=== PATIENT | male | born 1935 | race Caucasian/White ===

== ENCOUNTER → 2016-07-21 | Outpatient (REF) | payer MEDICARE ==
[2016-07-21 11:40] LABS: MEAN CORPUSCULAR HEMOGLOBIN 32.7 pg (27.0-33.0); MEAN CORPUSCULAR HGB CONC 33.1 g/dl (32.0-36.5); MEAN CORPUSCULAR VOLUME 98.8 fl (80.0-96.0); RED CELL DISTRIBUTION WIDTH 13.9 % (11.5-14.5); RETIC HEMOGLOBIN CONTENT CHr 35.2 PG (24-36); RETICULOCYTE % ADVIA2120 2.3 % (0.5-1.5); WHITE BLOOD COUNT 2.7 K/mm3 (4.0-10.0)
[2016-07-21 13:18] LABS: PERCENT SATURATION 43.7 % (19.7-37.4)
== END | disposition home or self-care (01) ==
LOC: M SFHCCLAY 08:54
PROVIDERS: ATTEND Nurse Practitioner Family
DX: D64.9 Anemia, unspecified (principal)

== ENCOUNTER → 2016-08-11 | Outpatient (REF) | payer MEDICARE ==
[2016-08-11 17:55] LABS: FOLATE > 24.0 NG/ML (>5.4); VITAMIN B12 LEVEL 549 PG/ML (247-911)
[2016-08-11 18:00] LABS: FERRITIN 299 NG/ML (26-388); PERCENT SATURATION 47.2 % (19.7-37.4); TOTAL IRON BINDING CAPACITY 375 UG/DL (250-450)
[2016-08-11 18:34] LABS: REASON FOR REVIEW COMPREHENSIVE REVIEW
== END | disposition home or self-care (01) ==
LOC: M LAB REF 16:24
PROVIDERS: ATTEND Internal Medicine Medical Oncology
DX: D61.818 Other pancytopenia (principal)

== ENCOUNTER → 2016-08-17 | Outpatient (CLI) | payer MEDICARE ==
--- NOTE | 2016-08-17 10:40 | REP ---
ULTRASOUND ABDOMEN: Real-time sonographic evaluation of the abdomen is performed. Gallbladder demonstrates no evidence of intraluminal sludge or calculi, wall thickening or pericholecystic fluid. There is no evidence of intrahepatic or extrahepatic biliary dilatation, common bile duct measuring 4 mm in diameter. Lobulated hyperechoic area in the left lobe of the liver measures 2.7 x 1.8 x 2.3 cm. The pancreas is not well seen due to overlying bowel gas. No gross abnormality is seen of the visualized portions. The spleen demonstrates measurements 10.0 x 11.1 x 5.2 cm. There is no intrinsic splenic abnormality. Right kidney measures 10.2 x 3.7 x 4.8 cm and left kidney 10.2 x 4.8 x 5.1 cm. There is no hydronephrosis bilaterally. There is a cyst in the lower pole of the left kidney measuring 1.5 x 0.9 x 1.1 cm. There is no evidence of abdominal aortic aneurysm. Maximum AP diameter of the abdominal aorta just below the diaphragms is 2.2 cm, mid aspect 2.2 cm and distally 1.8 cm. There is no ascites. IMPRESSION: Lobulated hyperechoic area in the left lobe of the liver may represent hemangioma. Recommend further evaluation with dynamic CT or MRI with contrast. The spleen upper limits of normal to slightly enlarged. Signed by Piotr Zelaya MD 08/17/2016 12:31 P
== END | disposition home or self-care (01) ==
LOC: M RAD 09:25
PROVIDERS: ATTEND Internal Medicine Medical Oncology
DX: D61.818 Other pancytopenia (principal); F10.10 Alcohol abuse, uncomplicated; R93.2 Abnormal findings on diagnostic imaging of liver and biliary tract; R16.1 Splenomegaly, not elsewhere classified

== ENCOUNTER → 2016-08-31 | Outpatient (CLI) | payer MEDICARE ==
--- NOTE | 2016-08-31 12:42 | REP ---
MRI abdomen without and with IV gadolinium: History: Lobulated hyperechoic area in the left lobe of the liver seen by ultrasound, possible hemangioma. MRI or CT recommended. Comparison sonography August 17, 2016. MRI contrast enhancement dose: 14 ml of intravenous ProHance. MR technique: Axial and coronal T1 and T2-weighted scans were obtained. Sequences include true FISP, spin echo, turbo spin-echo, in and out of phase, and 2-D gradient echo fat sat T1-weighted images acquired sequentially post contrast. MRI findings: T1 and T2-weighted pre- and postcontrast images show no hepatic mass lesion. There is some normal fat in the falciform ligament in this patient's liver configuration and this may relate to the sonographic findings. In any event, there is no evidence of mass, cyst, hemangioma or other focal liver lesion. No filling defect is seen within the gallbladder lumen. No pancreatic lesion is seen. There is a small cyst at the lower pole periphery of the left kidney, 2.0 cm in greatest diameter. No other significant renal finding. No retroperitoneal mass or adenopathy is seen. There is no evidence of ascites. Postcontrast images show no abnormal contrast enhancement within the abdomen. Impression: 2 cm cyst lower pole left kidney. Otherwise negative MRI study of the abdomen. No hepatic mass lesion seen. Signed by Branden Gonzáles MD 08/31/2016 02:01 P
== END ==
LOC: M RAD 09:53
PROVIDERS: ATTEND Internal Medicine Medical Oncology
DX: N28.1 Cyst of kidney, acquired (principal)
CPT/HCPCS: 74183; A9576

== ENCOUNTER → 2016-12-10 | Outpatient (REF) | payer MEDICARE ==
[2016-12-10 11:59] LABS: MEAN CORPUSCULAR HEMOGLOBIN 33.7 pg (27.0-33.0); MEAN CORPUSCULAR HGB CONC 34.5 g/dl (32.0-36.5); MEAN CORPUSCULAR VOLUME 97.5 fl (80.0-96.0); RED CELL DISTRIBUTION WIDTH 14.1 % (11.5-14.5); RETIC HEMOGLOBIN CONTENT CHr 36.3 PG (24-36); RETICULOCYTE % ADVIA2120 2.2 % (0.5-1.5)
[2016-12-10 12:09] LABS: ALBUMIN 3.2 GM/DL (3.2-5.2); ALBUMIN/GLOBULIN RATIO 0.82 (1.00-1.93); ALKALINE PHOSPHATASE 73 U/L (45-117); ALT/SGPT 18 U/L (12-78); ANION GAP 7 MEQ/L (8-16); AST/SGOT 17 U/L (15-37); BILIRUBIN,TOTAL 0.5 MG/DL (0.2-1.0); BLOOD UREA NITROGEN 15 MG/DL (7-18); CARBON DIOXIDE LEVEL 27 MEQ/L (21-32); CHLORIDE LEVEL 98 MEQ/L (98-107); CHOLESTEROL LEVEL 184 MG/DL (<200); CREATININE FOR GFR 0.85 MG/DL (0.70-1.30); FERRITIN 192 NG/ML (26-388); GLOMERULAR FILTRATION RATE > 60.0 (>35); GLUCOSE, FASTING 88 MG/DL (83-110); PERCENT SATURATION 23.6 % (19.7-37.4); POTASSIUM SERUM 4.9 MEQ/L (3.5-5.1); SODIUM LEVEL 132 MEQ/L (136-145); TOTAL IRON BINDING CAPACITY 369 UG/DL (250-450); TOTAL PROTEIN 7.1 GM/DL (6.4-8.2); TRIGLYCERIDES LEVEL 157 MG/DL (<150)
== END ==
LOC: M SFHCCLAY 07:58
PROVIDERS: ATTEND Nurse Practitioner Family
DX: D64.9 Anemia, unspecified (principal); I10 Essential (primary) hypertension; Z13.6 Encounter for screening for cardiovascular disorders; E55.9 Vitamin D deficiency, unspecified

== ENCOUNTER 2017-08-17 05:40 | Day surgery (SDC) | payer MEDICARE ==
[2017-08-17] MEDS ORDERED: ACETAMINOPHEN 325 MG TAB PO (06:00)
[2017-08-17] MEDS: BALANCED SALT IRRIGATION SOLUTION 500ML BAG (FOR OR EYE MACHINE) As Ordered (06:53)
[2017-08-17] MEDS ORDERED: PHENYLEPHRINE HCL 10 % OPHTH. SOL 5ML OS (07:00)
[2017-08-17] MEDS ORDERED: PROPARACAINE 0.5% OPHTH SOL 15ML OS (07:01)
[2017-08-17] MEDS ORDERED: LIDOCAINE 2% W/EPIN INJ 20ML **PRES FREE As Ordered (07:26)
[2017-08-17] MEDS ORDERED: MIDAZOLAM INJ 2 MG/2 ML VIAL (J2250) As Ordered (07:44)
[2017-08-17] MEDS ORDERED: fentaNYL 100 MCG/2 ML INJECTION (J3010) As Ordered (07:44)
[2017-08-17] MEDS: LIDOCAINE 1% SDV 5 ML VIAL As Ordered (07:55)
[2017-08-17] MEDS: TRIAMCINOLONE PRES FR 40 MG/ML 1ML(TRIESENCE)(OR EYE ONLY)(J3300 PER 1MG) As Ordered (07:55)
[2017-08-17] MEDS: POVIDONE-IODINE 5% OPHTH PREP SOL 30ML As Ordered (07:55)
[2017-08-17] MEDS: HEALON DUET (HEALON 10MG/ML 0.55ML & HEALON ENDOCOAT 30MG/ML 0.85ML) As Ordered (07:56)
[2017-08-17] MEDS: MOXIFLOXACIN IN BSS 0.25MG/0.25ML INTRACAMERAL INJ (OR EYE ONLY)(J2280) As Ordered (07:56)
[2017-08-17] MEDS: BSS with VANC/TOB/EPI for EYE CASES IR (07:56)
[2017-08-17] MEDS ORDERED: AcetaZOLAMIDE 500 MG ER CAP As Ordered (08:02)
[2017-08-17] MEDS ORDERED: KETOROLAC 0.5% OPHTH SOLN OS (08:15)
[2017-08-17] MEDS ORDERED: TRIMETHOBENZAMIDE 300 MG CAP PO (08:15)
[2017-08-17] MEDS: AcetaZOLAMIDE 500 MG ER CAP PO (08:20)
[2017-08-17] MEDS: LIDOCAINE 3.5 % 1ML OPHTH TOPICAL GEL OU (08:52)
[2017-08-17] MEDS: CYCLOPENTOLATE 2% OPHTH SOLN 2ML BTL OS (08:52)
[2017-08-17] MEDS: PHENYLEPHRINE 2.5% OPHTH SOL 2ML OS (08:52)
[2017-08-17] MEDS: TROPICAMIDE 1% OPHTH SOLN 2ML OS (08:52)
[2017-08-17] MEDS: OFLOXACIN 0.3 % (OCUFLOX) OPTH SOL 5ML OS (08:52)
== END 2017-08-17 08:34 | disposition home or self-care (01) ==
LOC: M SDC 05:40
DX: H59.022 Cataract (lens) fragments in eye following cataract surgery, left eye (principal); I10 Essential (primary) hypertension; Z79.82 Long term (current) use of aspirin; Z79.899 Other long term (current) drug therapy
CPT/HCPCS: 65235

== ENCOUNTER → 2017-10-17 | Outpatient (REF) | payer MEDICARE ==
[2017-10-18 10:50] LABS: PRETREATED FOLATE FOR RBCFOL 13.1 NG/ML; RBC FOLATE 687.8 NG/ML (280-791)
== END ==
LOC: M LAB REF 17:25
DX: D69.6 Thrombocytopenia, unspecified (principal)
CPT/HCPCS: 82747

== ENCOUNTER → 2017-11-02 | Outpatient (REF) | payer MEDICARE | LOC: M LAB REF 13:04 | DX: D70.9 Neutropenia, unspecified (principal); D69.59 Other secondary thrombocytopenia; D53.9 Nutritional anemia, unspecified | CPT/HCPCS: 88300 ==

== ENCOUNTER → 2017-12-13 | Outpatient (REF) | payer MEDICARE ==
[2017-12-13 11:48] LABS: HEMATOCRIT 37.8 % (42.0-52.0); HEMOGLOBIN 13.1 g/dl (13.5-17.5); MEAN CORPUSCULAR HEMOGLOBIN 32.7 pg (27.0-33.0); MEAN CORPUSCULAR HGB CONC 34.7 g/dl (32.0-36.5); MEAN CORPUSCULAR VOLUME 94.3 fl (80.0-96.0); RED BLOOD COUNT 4.01 10^6/uL (4.30-6.10); RED CELL DISTRIBUTION WIDTH 13.1 % (11.5-14.5)
[2017-12-13 11:55] LABS: PLATELET COUNT, AUTOMATED 90 10^3/uL (150-450)
[2017-12-13 11:56] LABS: IMMATURE PLATELET FRACTION % 15.4 % (0.0-10.9)
[2017-12-13 12:03] LABS: TOTAL 25(OH) VITAMIN D 80.5 NG/ML (30.0-100.0)
[2017-12-13 12:05] LABS: ALBUMIN 3.4 GM/DL (3.2-5.2); ALBUMIN/GLOBULIN RATIO 0.87 (1.00-1.93); ALKALINE PHOSPHATASE 81 U/L (45-117); ALT/SGPT 18 U/L (12-78); ANION GAP 9 MEQ/L (8-16); AST/SGOT 15 U/L (7-37); BILIRUBIN,TOTAL 0.5 MG/DL (0.2-1.0); BLOOD UREA NITROGEN 18 MG/DL (7-18); CALCIUM LEVEL 9.1 MG/DL (8.8-10.2); CARBON DIOXIDE LEVEL 27 MEQ/L (21-32); CHLORIDE LEVEL 101 MEQ/L (98-107); CHOLESTEROL LEVEL 191 MG/DL (<200); CHOLESTEROL RISK RATIO 3.183 (<5); CREATININE FOR GFR 0.96 MG/DL (0.70-1.30); GLOMERULAR FILTRATION RATE > 60.0 (>35); GLUCOSE, FASTING 94 MG/DL (70-100); HDL CHOLESTEROL 60 MG/DL (>40); LDL CHOLESTEROL 102.6 MG/DL (<100); NON-HDL-C 131 MG/DL; POTASSIUM SERUM 4.5 MEQ/L (3.5-5.1); SODIUM LEVEL 137 MEQ/L (136-145); TOTAL PROTEIN 7.3 GM/DL (6.4-8.2); TRIGLYCERIDES LEVEL 142 MG/DL (<150)
== END ==
LOC: M SFHCCLAY 08:03
DX: D64.9 Anemia, unspecified (principal); I10 Essential (primary) hypertension; E78.5 Hyperlipidemia, unspecified; E55.9 Vitamin D deficiency, unspecified
CPT/HCPCS: 80053

== ENCOUNTER → 2019-02-14 | Outpatient (REF) | payer MEDICARE ==
[~2019-02-14] MED LIST: AMLO5TAB6 PO; ASPI81TA85 PO; ATEN25TA PO; CALC500T61 PO; LISI40TA PO; MULT1TAB18 PO; MULT1TAB8 PO; MURO5OIN OU; PRED1SUS2 OS; SODI2OPD OU; VITA50005 PO
[2019-02-14 14:33] LABS: HEMATOCRIT 41.5 % (42.0-52.0); HEMOGLOBIN 14.1 g/dl (13.5-17.5); MEAN CORPUSCULAR HEMOGLOBIN 32.9 pg (27.0-33.0); MEAN CORPUSCULAR VOLUME 96.7 fl (80.0-96.0); RED BLOOD COUNT 4.29 10^6/uL (4.30-6.10); WHITE BLOOD COUNT 5.2 10^3/uL (4.0-10.0)
[2019-02-14 14:39] LABS: PLATELET COUNT, AUTOMATED 72 10^3/uL (150-450)
[2019-02-14 15:14] LABS: ALBUMIN 3.3 GM/DL (3.2-5.2); ALT/SGPT 17 U/L (12-78); BILIRUBIN,TOTAL 0.5 MG/DL (0.2-1.0); BLOOD UREA NITROGEN 15 MG/DL (7-18); CALCIUM LEVEL 8.8 MG/DL (8.8-10.2); CARBON DIOXIDE LEVEL 27 MEQ/L (21-32); CHLORIDE LEVEL 100 MEQ/L (98-107); CHOLESTEROL LEVEL 159 MG/DL (<200); CHOLESTEROL RISK RATIO 2.446 (<5); CREATININE FOR GFR 0.81 MG/DL (0.70-1.30); GLOMERULAR FILTRATION RATE > 60.0 (>35); GLUCOSE, FASTING 94 MG/DL (70-100); HDL CHOLESTEROL 65 MG/DL (>40); LDL CHOLESTEROL 71 MG/DL (<100); NON-HDL-C 94 MG/DL; POTASSIUM SERUM 4.3 MEQ/L (3.5-5.1); SODIUM LEVEL 133 MEQ/L (136-145); TOTAL 25(OH) VITAMIN D 73.4 NG/ML (30.0-100.0); TRIGLYCERIDES LEVEL 114 MG/DL (<150)
== END ==
LOC: M SFHCCLAY 08:29
PROVIDERS: ATTEND Nurse Practitioner Family
DX: I10 Essential (primary) hypertension (principal); E78.5 Hyperlipidemia, unspecified; E55.9 Vitamin D deficiency, unspecified

== ENCOUNTER → 2019-11-27 | Outpatient (REF) | payer MEDICARE ==
[2019-11-27 12:28] LABS: HEMATOCRIT 49.1 % (42.0-52.0); HEMOGLOBIN 16.5 g/dl (13.5-17.5); MEAN CORPUSCULAR HEMOGLOBIN 33.3 pg (27.0-33.0); MEAN CORPUSCULAR HGB CONC 33.6 g/dl (32.0-36.5); PLATELET COUNT, AUTOMATED 66 10^3/uL (150-450); RED BLOOD COUNT 4.96 10^6/uL (4.30-6.10); WHITE BLOOD COUNT 3.2 10^3/uL (4.0-10.0)
[2019-11-27 13:12] LABS: ALT/SGPT 21 U/L (12-78); BLOOD UREA NITROGEN 17 MG/DL (7-18); CARBON DIOXIDE LEVEL 27 MEQ/L (21-32); CHLORIDE LEVEL 106 MEQ/L (98-107); GLOMERULAR FILTRATION RATE > 60.0 (>35); GLUCOSE, FASTING 84 MG/DL (70-100); SODIUM LEVEL 140 MEQ/L (136-145)
[2019-11-27 13:13] LABS: ALBUMIN 3.2 GM/DL (3.2-5.2); BILIRUBIN,TOTAL 0.7 MG/DL (0.2-1.0); CHOLESTEROL LEVEL 181 MG/DL (<200); CHOLESTEROL RISK RATIO 2.873 (<5); HDL CHOLESTEROL 63 MG/DL (>40); LDL CHOLESTEROL 96 MG/DL (<100); NON-HDL-C 118 MG/DL; TOTAL PROTEIN 7.2 GM/DL (6.4-8.2); TRIGLYCERIDES LEVEL 112 MG/DL (<150)
[2019-11-27 13:15] LABS: TOTAL 25(OH) VITAMIN D 76.4 NG/ML (30.0-100.0)
== END ==
LOC: M SFHCCLAY 08:18
PROVIDERS: ATTEND Nurse Practitioner Family
DX: E78.5 Hyperlipidemia, unspecified (principal); I10 Essential (primary) hypertension; E55.9 Vitamin D deficiency, unspecified; Z79.899 Other long term (current) drug therapy

== ENCOUNTER → 2020-11-18 | Outpatient (REF) | payer MEDICARE ==
[~2020-11-18] MED LIST changes: +AMLO1TAB24 PO; -AMLO5TAB6 PO; -ASPI81TA85 PO; +ASPI81TA86 PO; -LISI40TA PO; +LISI40TA4 PO
[2020-11-18 11:54] LABS: HEMATOCRIT 48.1 % (42.0-52.0); HEMOGLOBIN 16.2 g/dl (13.5-17.5); MEAN CORPUSCULAR HEMOGLOBIN 32.7 pg (27.0-33.0); MEAN CORPUSCULAR HGB CONC 33.7 g/dl (32.0-36.5); MEAN CORPUSCULAR VOLUME 97.2 fl (80.0-96.0); PLATELET COUNT, AUTOMATED 103 10^3/uL (150-450); RED BLOOD COUNT 4.95 10^6/uL (4.30-6.10); WHITE BLOOD COUNT 3.8 10^3/uL (4.0-10.0)
[2020-11-18 12:35] LABS: ALBUMIN 3.4 GM/DL (3.2-5.2); ALT/SGPT 16 U/L (12-78); BILIRUBIN,TOTAL 0.6 MG/DL (0.2-1.0); BLOOD UREA NITROGEN 13 MG/DL (7-18); CALCIUM LEVEL 8.9 MG/DL (8.8-10.2); CARBON DIOXIDE LEVEL 28 MEQ/L (21-32); CHLORIDE LEVEL 98 MEQ/L (98-107); CHOLESTEROL LEVEL 171 MG/DL (<200); CHOLESTEROL RISK RATIO 2.714 (<5); CREATININE FOR GFR 0.72 MG/DL (0.70-1.30); GLOMERULAR FILTRATION RATE > 60.0 (>35); GLUCOSE, FASTING 105 MG/DL (70-100); HDL CHOLESTEROL 63 MG/DL (>40); LDL CHOLESTEROL 94 MG/DL (<100); NON-HDL-C 108 MG/DL; POTASSIUM SERUM 5.1 MEQ/L (3.5-5.1); SODIUM LEVEL 133 MEQ/L (136-145); TOTAL 25(OH) VITAMIN D 51.8 NG/ML (30.0-100.0); TRIGLYCERIDES LEVEL 69 MG/DL (<150)
== END ==
LOC: M SFHCCLAY 07:55
PROVIDERS: ATTEND Nurse Practitioner Family
DX: E55.9 Vitamin D deficiency, unspecified (principal); I10 Essential (primary) hypertension; E78.5 Hyperlipidemia, unspecified; Z79.899 Other long term (current) drug therapy

== ENCOUNTER → 2021-03-16 | Outpatient (REF) | payer MEDICARE ==
[2021-03-16 15:59] LABS: BASO % 0.6 % (0.0-1.0); EOS % 1.1 % (0.0-3.0); HEMATOCRIT 48.7 % (42.0-52.0); HEMOGLOBIN 17.1 g/dl (13.5-17.5); LYMPH # 0.4 10^3/uL (1.5-5.0); MEAN CORPUSCULAR HEMOGLOBIN 33.5 pg (27.0-33.0); MEAN CORPUSCULAR HGB CONC 35.1 g/dl (32.0-36.5); MEAN CORPUSCULAR VOLUME 95.3 fl (80.0-96.0); MONO # 0.4 10^3/uL (0.0-0.8); MONO % 12.5 % (2.0-8.0); NEUTROPHILS # 2.6 10^3/uL (1.5-8.5); NEUTROPHILS % 73.2 % (36.0-66.0); RED BLOOD COUNT 5.11 10^6/uL (4.30-6.10); WHITE BLOOD COUNT 3.5 10^3/uL (4.0-10.0)
[2021-03-16 16:02] LABS: PLATELET COUNT, AUTOMATED 86 10^3/uL (150-450)
[2021-03-16 17:00] LABS: ALBUMIN 3.3 GM/DL (3.2-5.2); ALT/SGPT 27 U/L (12-78); BILIRUBIN,TOTAL 0.8 MG/DL (0.2-1.0); BLOOD UREA NITROGEN 10 MG/DL (7-18); C REACTIVE PROTEIN QUANTITATIV 0.33 MG/DL (0.00-0.30); CALCIUM LEVEL 9.2 MG/DL (8.8-10.2); CARBON DIOXIDE LEVEL 27 MEQ/L (21-32); CHLORIDE LEVEL 96 MEQ/L (98-107); CREATININE FOR GFR 0.73 MG/DL (0.70-1.30); GLOMERULAR FILTRATION RATE > 60.0 (>35); GLUCOSE, FASTING 98 MG/DL (70-100); SODIUM LEVEL 130 MEQ/L (136-145); TOTAL PROTEIN 6.9 GM/DL (6.4-8.2)
[2021-03-16 17:39] LABS: ERYTHROCYTE SEDIMENTATION RATE 5 mm/hr (0-20)
== END ==
LOC: M SFHCCLAY 11:08
PROVIDERS: ATTEND Nurse Practitioner Family
DX: S50.312A Abrasion of left elbow, initial encounter (principal); L08.9 Local infection of the skin and subcutaneous tissue, unspecified; B87.9 Myiasis, unspecified; W18.30XA Fall on same level, unspecified, initial encounter; Y92.009 Unspecified place in unspecified non-institutional (private) residence as the place of occurrence of the external cause

== ENCOUNTER → 2021-03-16 | Outpatient (CLI) | payer MEDICARE ==
--- NOTE | 2021-03-16 12:08 | REP ---
INDICATION: ABRASION OF LEFT ELBOW,INFECTION,MAGGOT INFREST. COMPARISON: None TECHNIQUE: Four views FINDINGS: There is a sub cm size calcification just medial to the medial humeral epicondyle. There is no acute fracture, dislocation, or subluxation. There is no evidence of a joint effusion. IMPRESSION: Chronic changes as described above. There is no evidence of an acute abnormality. <Electronically signed by Kamron Craig > 03/16/21 1627
== END ==
LOC: M CLY 11:27
PROVIDERS: ATTEND Nurse Practitioner Family
DX: S50.312A Abrasion of left elbow, initial encounter (principal); L08.9 Local infection of the skin and subcutaneous tissue, unspecified; B87.9 Myiasis, unspecified; Y92.9 Unspecified place or not applicable; Y99.9 Unspecified external cause status; Y93.9 Activity, unspecified
CPT/HCPCS: 73080; 80053; 85025; 85049; 85055; 85652; 86140; 87070; 87077; 87186; 96372; G0463; J0696

== ENCOUNTER → 2021-03-16 | Outpatient (REF) | payer MEDICARE | LOC: M SFHCCLAY 15:25 | PROVIDERS: ATTEND Nurse Practitioner Family | DX: S50.312A Abrasion of left elbow, initial encounter (principal); W18.30XA Fall on same level, unspecified, initial encounter; Y92.009 Unspecified place in unspecified non-institutional (private) residence as the place of occurrence of the external cause ==

== ENCOUNTER → 2021-12-17 | Outpatient (REF) | payer MEDICARE ==
[2021-12-17 11:56] LABS: BLOOD UREA NITROGEN 21 MG/DL (7-18); CALCIUM LEVEL 8.4 MG/DL (8.8-10.2); CARBON DIOXIDE LEVEL 28 MEQ/L (21-32); CHLORIDE LEVEL 100 MEQ/L (98-107); CREATININE FOR GFR 0.96 MG/DL (0.70-1.30); GLOMERULAR FILTRATION RATE > 60.0 (>35); GLUCOSE, FASTING 94 MG/DL (70-100); POTASSIUM SERUM 4.9 MEQ/L (3.5-5.1); SODIUM LEVEL 133 MEQ/L (136-145)
[2021-12-17 12:04] LABS: TOTAL 25(OH) VITAMIN D 63.7 NG/ML (30.0-100.0)
== END ==
LOC: M SFHCCLAY 08:03
PROVIDERS: ATTEND Family Medicine
DX: I11.9 Hypertensive heart disease without heart failure (principal); E55.9 Vitamin D deficiency, unspecified

== ENCOUNTER 2022-07-26 16:56 | Emergency (ER) | payer MEDICARE ==
[~2022-07-26] VITALS: Ht 165.1 cm; Wt 63.6 kg
[~2022-07-26 16:56] MED LIST changes: -HYDR-3713 PO
[2022-07-26] MEDS ORDERED: NORCO 5/325MG TABLET (HOME DOSE PACK) PO ONE (18:40)
[2022-07-26] MEDS ORDERED: KETOROLAC TROMETHAMINE 10 MG TAB PO ONE (18:40)
[2022-07-26] MEDS ORDERED: HYDR-3713 PO (18:41)
[2022-07-26 18:50] VITALS: BP 143/72
[2022-09-08] MEDS ORDERED: OMEP40CA4 PO (11:20)
[2022-09-08] MEDS ORDERED: BISA10SU4 PR (11:20)
[2022-09-08] MEDS ORDERED: MILKSUS3 PO (11:20)
[2022-09-08] MEDS ORDERED: FERR325T3 PO (11:20)
[2022-09-08] MEDS ORDERED: GLUC1KIT IM (11:20)
== END 2022-07-26 20:11 | disposition home or self-care (01) ==
LOC: M ED 16:56
DX: S42.212A Unspecified displaced fracture of surgical neck of left humerus, initial encounter for closed fracture (principal); W00.0XXA Fall on same level due to ice and snow, initial encounter; Y92.009 Unspecified place in unspecified non-institutional (private) residence as the place of occurrence of the external cause; I10 Essential (primary) hypertension; E03.9 Hypothyroidism, unspecified; Z87.891 Personal history of nicotine dependence; D69.6 Thrombocytopenia, unspecified; Z79.82 Long term (current) use of aspirin; Z79.899 Other long term (current) drug therapy

== ENCOUNTER → 2022-07-26 | Outpatient (REF) | payer MEDICARE ==
[~2022-07-26] MED LIST changes: +HYDR-3713 PO
[2022-07-26 13:10] LABS: BLOOD UREA NITROGEN 25 MG/DL (9-23); CALCIUM LEVEL 9.4 MG/DL (8.3-10.6); CARBON DIOXIDE LEVEL 28 MMOL/L (20-31); CHLORIDE LEVEL 106 MMOL/L (98-107); CREATININE FOR GFR 1.07 MG/DL (0.70-1.30); GLOMERULAR FILTRATION RATE > 60.0 (>35); GLUCOSE, FASTING 94 MG/DL (74-106); POTASSIUM SERUM 5.6 MMOL/L (3.5-5.1); SODIUM LEVEL 142 MMOL/L (136-145)
== END ==
LOC: M SFHCCLAY 09:09
PROVIDERS: ATTEND Nurse Practitioner Family
DX: I11.9 Hypertensive heart disease without heart failure (principal)

== ENCOUNTER 2022-08-10 16:46 | Inpatient (IN) | payer MEDICARE ==
[~2022-08-10] VITALS: Ht 167.6 cm; Wt 61.7 kg
[~2022-08-10 16:46] MED LIST changes: +HYDR-3713 PO
[2022-08-10 18:27] LABS: EOS % 0.8 % (0.0-3.0); HEMATOCRIT 34.2 % (42.0-52.0); HEMOGLOBIN 10.7 g/dl (13.5-17.5); LYMPH # 0.2 10^3/uL (1.5-5.0); MEAN CORPUSCULAR HEMOGLOBIN 32.5 pg (27.0-33.0); MEAN CORPUSCULAR HGB CONC 31.3 g/dl (32.0-36.5); MONO # 0.4 10^3/uL (0.0-0.8); MONO % 11.7 % (2.0-8.0); NEUTROPHILS % 80.7 % (36.0-66.0); RED BLOOD COUNT 3.29 10^6/uL (4.30-6.10); WHITE BLOOD COUNT 3.7 10^3/uL (4.0-10.0)
[2022-08-10 18:46] LABS: PLATELET COUNT, AUTOMATED 59 10^3/uL (150-450)
[2022-08-10 18:49] LABS: CALCIUM LEVEL 7.8 MG/DL (8.3-10.6); CREATININE FOR GFR 2.27 MG/DL (0.70-1.30); GLOMERULAR FILTRATION RATE 29.3 (>35); POTASSIUM SERUM 4.8 MMOL/L (3.5-5.1)
[2022-08-10] MEDS ORDERED: NS 1,000 ML IV SCH ×2 (19:05→21:50)
[2022-08-10 19:17] LABS: RSV AMPLIFICATION NEGATIVE (NEGATIVE)
[2022-08-10] MEDS ORDERED: ASPI81TA26 PO (19:54)
[2022-08-10] MEDS ORDERED: HYDR-3713 PO (19:54)
[2022-08-10] MEDS ORDERED: HOME MED LIST COMPLETE! XX SCH (20:00)
[2022-08-10] MEDS ORDERED: MAALOX 30 ML SUSP *UDC PO PRN (21:25)
[2022-08-10] MEDS ORDERED: MOM 30ML SUSPENSION UDC PO PRN (21:25)
[2022-08-10] MEDS ORDERED: D5W/0.45% SODIUM CHLORIDE 1,000 ML IV SCH (22:40)
[2022-08-11 00:55] LABS: CREATININE FOR GFR 1.98 MG/DL (0.70-1.30); GLOMERULAR FILTRATION RATE 34.3 (>35); POTASSIUM SERUM 4.9 MMOL/L (3.5-5.1)
[2022-08-11] MEDS: D5W 1,000 ML IV SCH ×3 (01:38→16:08)
[2022-08-11 03:32] LABS: CALCIUM LEVEL 7.8 MG/DL (8.3-10.6); CREATININE FOR GFR 1.77 MG/DL (0.70-1.30); POTASSIUM SERUM 4.4 MMOL/L (3.5-5.1)
[2022-08-11] MEDS ORDERED: GI COCKTAIL 50ML BTL(HYOSCYAMINE/MAALOX/LIDOCAINE VISCOUS)(1:3:1) PO ONE (06:00)
[2022-08-11 06:18] LABS: BASO % 0.3 % (0.0-1.0); EOS # 0.1 10^3/uL (0.0-0.5); EOS % 1.9 % (0.0-3.0); HEMATOCRIT 35.1 % (42.0-52.0); HEMOGLOBIN 11.4 g/dl (13.5-17.5); LYMPH # 0.3 10^3/uL (1.5-5.0); MEAN CORPUSCULAR HGB CONC 32.5 g/dl (32.0-36.5); MEAN CORPUSCULAR VOLUME 101.7 fl (80.0-96.0); MONO # 0.3 10^3/uL (0.0-0.8); MONO % 8.6 % (2.0-8.0); NEUTROPHILS # 2.5 10^3/uL (1.5-8.5); NEUTROPHILS % 80.9 % (36.0-66.0); RED BLOOD COUNT 3.45 10^6/uL (4.30-6.10); WHITE BLOOD COUNT 3.1 10^3/uL (4.0-10.0)
[2022-08-11 06:27] LABS: PLATELET COUNT, AUTOMATED 57 10^3/uL (150-450)
[2022-08-11 06:40] VITALS: BP 126/65
[2022-08-11 06:43] LABS: CALCIUM LEVEL 7.6 MG/DL (8.3-10.6); CREATININE FOR GFR 1.61 MG/DL (0.70-1.30); GLOMERULAR FILTRATION RATE 43.5 (>35); POTASSIUM SERUM 4.2 MMOL/L (3.5-5.1)
[2022-08-11] MEDS ORDERED: amLODIPine 5 MG TAB PO SCH (09:00)
[2022-08-11] MEDS ORDERED: atenoloL 25 MG TAB PO SCH (09:00)
[2022-08-11 10:35] LABS: ALBUMIN 2.5 G/DL (3.2-5.2); BILIRUBIN,TOTAL 1.1 MG/DL (0.3-1.2); CALCIUM LEVEL 7.9 MG/DL (8.3-10.6); CREATININE FOR GFR 1.56 MG/DL (0.70-1.30); GLOMERULAR FILTRATION RATE 45.1 (>35); POTASSIUM SERUM 4.3 MMOL/L (3.5-5.1); TOTAL PROTEIN 5.6 G/DL (5.7-8.2)
[2022-08-11 14:30] VITALS: BP 84/63
[2022-08-11 14:42] LABS: ALBUMIN 2.4 G/DL (3.2-5.2); BILIRUBIN,TOTAL 1.7 MG/DL (0.3-1.2); CALCIUM LEVEL 7.9 MG/DL (8.3-10.6); CREATININE FOR GFR 1.75 MG/DL (0.70-1.30); GLOMERULAR FILTRATION RATE 39.5 (>35); POTASSIUM SERUM 4.5 MMOL/L (3.5-5.1); TOTAL PROTEIN 5.3 G/DL (5.7-8.2)
[2022-08-11 17:15] VITALS: BP 68/54
[2022-08-11 17:16] LABS: ABG BASE EXCESS -6.5 (-2.0-2.0); ABG HCO3 14.4 MEQ/L (22.0-26.0); ABG O2 SATURATION 94.7 % (95.0-99.0); ABG PARTIAL PRESSURE O2 67.8 mmHg (75.0-100.0); ABG STANDARD HCO3 19.2 MEQ/L (22.0-26.0); ABG TOTAL CO2 14.9 MEQ/L (23.0-31.0); ABG pH (ARTERIAL) 7.494 UNITS (7.350-7.450)
[2022-08-11 17:22] LABS: ABG PARTIAL PRESSURE CO2 19.1 mmHg (35.0-45.0)
[2022-08-11] MEDS ORDERED: cefTRIAXone SOD 1 GM in D5W MINI-BAG PLUS 50 ML IV SCH (17:25)
[2022-08-11] MEDS ORDERED: NS 1,000 ML IV ONE (17:35)
[2022-08-11] MEDS ORDERED: LR 1,000 ML IV ONE ×2 (17:45→18:55)
[2022-08-11 18:12] VITALS: BP 70/42
[2022-08-11 18:16] LABS: ALBUMIN 2.3 G/DL (3.2-5.2); CK-MB VALUE MASS 21.1 NG/ML (<3.6); CREATININE FOR GFR 2.08 MG/DL (0.70-1.30); GLOMERULAR FILTRATION RATE 32.4 (>35); MB/CK RELATIVE INDEX 14.06 (< OR =4); POTASSIUM SERUM 4.7 MMOL/L (3.5-5.1); TOTAL PROTEIN 5.1 G/DL (5.7-8.2)
[2022-08-11 18:55] VITALS: BP 80/54
[2022-08-11 19:44] LABS: CK-MB VALUE MASS 18.2 NG/ML (<3.6)
[2022-08-11 19:47] LABS: MB/CK RELATIVE INDEX 13.58 (< OR =4)
[2022-08-11 20:12] VITALS: BP 102/56
[2022-08-11] MEDS: PIPERACILLIN/TAZOBACTAM SOD 3.375 GM in D5W MINI-BAG PLUS 50 ML IV SCH (20:33)
[2022-08-11] MEDS ORDERED: NS 1,000 ML IV SCH (20:45)
[2022-08-11 22:16] LABS: CK-MB VALUE MASS 17.7 NG/ML (<3.6)
[2022-08-11 22:17] LABS: ALBUMIN 2.1 G/DL (3.2-5.2); BILIRUBIN,TOTAL 1.8 MG/DL (0.3-1.2); CALCIUM LEVEL 7.6 MG/DL (8.3-10.6); CREATININE FOR GFR 2.04 MG/DL (0.70-1.30); GLOMERULAR FILTRATION RATE 33.1 (>35); POTASSIUM SERUM 4.8 MMOL/L (3.5-5.1); TOTAL PROTEIN 4.5 G/DL (5.7-8.2)
[2022-08-11 22:18] LABS: MB/CK RELATIVE INDEX 11.95 (< OR =4)
[2022-08-12] VITALS (10 sets, daily range): BP systolic 80–123; BP diastolic 40–66
[2022-08-12] MEDS: PIPERACILLIN/TAZOBACTAM SOD 3.375 GM in D5W MINI-BAG PLUS 50 ML IV SCH ×4 (01:15→19:00)
[2022-08-12] MEDS ORDERED: NS 500 ML IV ONE (02:25)
[2022-08-12 03:16] LABS: ALBUMIN 1.9 G/DL (3.2-5.2); BILIRUBIN,TOTAL 2.4 MG/DL (0.3-1.2); CALCIUM LEVEL 7.6 MG/DL (8.3-10.6); CREATININE FOR GFR 2.08 MG/DL (0.70-1.30); GLOMERULAR FILTRATION RATE 32.4 (>35); POTASSIUM SERUM 4.8 MMOL/L (3.5-5.1)
[2022-08-12 03:50] LABS: TOTAL PROTEIN 4.5 G/DL (5.7-8.2)
[2022-08-12 05:22] LABS: HEMATOCRIT 33.3 % (42.0-52.0); HEMOGLOBIN 10.9 g/dl (13.5-17.5); MEAN CORPUSCULAR HEMOGLOBIN 32.8 pg (27.0-33.0); MEAN CORPUSCULAR HGB CONC 32.7 g/dl (32.0-36.5); MEAN CORPUSCULAR VOLUME 100.3 fl (80.0-96.0); RED BLOOD COUNT 3.32 10^6/uL (4.30-6.10); WHITE BLOOD COUNT 17.5 10^3/uL (4.0-10.0)
[2022-08-12 05:23] LABS: PLATELET COUNT, AUTOMATED 47 10^3/uL (150-450)
[2022-08-12 05:41] LABS: ALBUMIN 1.9 G/DL (3.2-5.2); CALCIUM LEVEL 7.5 MG/DL (8.3-10.6); CREATININE FOR GFR 2.04 MG/DL (0.70-1.30); GLOMERULAR FILTRATION RATE 33.1 (>35); POTASSIUM SERUM 4.5 MMOL/L (3.5-5.1); TOTAL PROTEIN 4.5 G/DL (5.7-8.2)
[2022-08-12] MEDS ORDERED: D5W/0.45% SODIUM CHLORIDE 1,000 ML IV SCH (07:30)
[2022-08-12 08:21] LABS: CK-MB VALUE MASS 8.4 NG/ML (<3.6)
[2022-08-12 08:25] LABS: MB/CK RELATIVE INDEX 6.41 (< OR =4)
[2022-08-12 09:58] LABS: ALBUMIN 1.9 G/DL (3.2-5.2); BILIRUBIN,TOTAL 1.9 MG/DL (0.3-1.2); CALCIUM LEVEL 7.3 MG/DL (8.3-10.6); GLOMERULAR FILTRATION RATE 33.9 (>35); POTASSIUM SERUM 4.1 MMOL/L (3.5-5.1); TOTAL PROTEIN 4.5 G/DL (5.7-8.2)
[2022-08-12] MEDS ORDERED: LR 500 ML IV ONE (12:25)
[2022-08-12] MEDS ORDERED: VANCOMYCIN HCL 750 MG, VIAL MATE ADAPTER 1 EACH in NS 250 ML IV SCH (12:55)
[2022-08-12 12:56] LABS: MAGNESIUM LEVEL 1.7 MG/DL (1.8-2.4); PHOSPHORUS LEVEL 2.1 MG/DL (2.4-5.1)
[2022-08-12] MEDS ORDERED: MAG SULF 1GM/100ML (MAG RUN) 1 GM in IV 1 EA IV ONE ×2 (14:00→22:15)
[2022-08-12] MEDS: PANTOPRAZOLE 40MG VIAL IV SCH (14:34)
[2022-08-12 14:36] LABS: ALBUMIN 1.8 G/DL (3.2-5.2); BILIRUBIN,TOTAL 1.4 MG/DL (0.3-1.2); CALCIUM LEVEL 7.4 MG/DL (8.3-10.6); CREATININE FOR GFR 1.92 MG/DL (0.70-1.30); GLOMERULAR FILTRATION RATE 35.5 (>35); POTASSIUM SERUM 3.7 MMOL/L (3.5-5.1); TOTAL PROTEIN 4.3 G/DL (5.7-8.2)
[2022-08-12] MEDS ORDERED: LR 1,000 ML IV ONE (14:50)
[2022-08-12] MEDS ORDERED: VANCOMYCIN HCL 750 MG, VIAL MATE ADAPTER 1 EACH in D5W 250 ML IV ONE (15:00)
[2022-08-12] MEDS ORDERED: POTASSIUM PHOSPHATE INJ 20 MMOL in D5W 250 ML IV ONE (15:00)
[2022-08-12] MEDS ORDERED: VANCOMYCIN HCL 500 MG in D5W MINI-BAG PLUS 100 ML IV SCH (16:00)
[2022-08-12 18:56] LABS: ALBUMIN 1.9 G/DL (3.2-5.2); BILIRUBIN,TOTAL 2.2 MG/DL (0.3-1.2); CALCIUM LEVEL 7.4 MG/DL (8.3-10.6); CREATININE FOR GFR 1.77 MG/DL (0.70-1.30); POTASSIUM SERUM 4.6 MMOL/L (3.5-5.1); TOTAL PROTEIN 4.5 G/DL (5.7-8.2)
[2022-08-12] MEDS: LACTOBACILLUS ACIDOPHILUS CAP (BACID) PO SCH (19:00)
[2022-08-12] MEDS ORDERED: LACTATED RINGER'S 1000 ML IV ONE (20:30)
[2022-08-12] MEDS: METOPROLOL 5 MG/5 ML VIAL IV SCH ×3 (20:42→21:43)
[2022-08-12 20:49] LABS: HEMATOCRIT 29.1 % (42.0-52.0); HEMOGLOBIN 9.8 g/dl (13.5-17.5)
[2022-08-12] MEDS ORDERED: SODIUM CHLORIDE 0.9% 1000ML IV ONE (21:40)
[2022-08-12 22:01] LABS: MAGNESIUM LEVEL 1.6 MG/DL (1.8-2.4)
[2022-08-12 22:51] LABS: ALBUMIN 1.7 G/DL (3.2-5.2); BILIRUBIN,TOTAL 1.4 MG/DL (0.3-1.2); CALCIUM LEVEL 7.2 MG/DL (8.3-10.6); CREATININE FOR GFR 1.75 MG/DL (0.70-1.30); GLOMERULAR FILTRATION RATE 39.5 (>35); POTASSIUM SERUM 3.9 MMOL/L (3.5-5.1); TOTAL PROTEIN 4.2 G/DL (5.7-8.2)
[2022-08-13] VITALS (8 sets, daily range): BP systolic 94–118; BP diastolic 50–66
[2022-08-13] MEDS: AMIODARONE 200 MG TAB (PACERONE) PO SCH ×4 (00:04→22:53)
[2022-08-13] MEDS: PIPERACILLIN/TAZOBACTAM SOD 3.375 GM in D5W MINI-BAG PLUS 50 ML IV SCH ×4 (01:23→18:10)
[2022-08-13] MEDS ORDERED: DIGOXIN INJ 0.5 MG/2 ML AMP IV ONE ×3 (02:00→06:00)
[2022-08-13] MEDS: PANTOPRAZOLE 40MG VIAL IV SCH ×2 (02:42→14:07)
[2022-08-13 04:45] LABS: ALBUMIN 1.7 G/DL (3.2-5.2); BILIRUBIN,TOTAL 1.5 MG/DL (0.3-1.2); CALCIUM LEVEL 7.4 MG/DL (8.3-10.6); CREATININE FOR GFR 1.72 MG/DL (0.70-1.30); GLOMERULAR FILTRATION RATE 40.3 (>35); POTASSIUM SERUM 4.2 MMOL/L (3.5-5.1); TOTAL PROTEIN 4.5 G/DL (5.7-8.2)
[2022-08-13 04:47] LABS: HEMOGLOBIN 9.4 g/dl (13.5-17.5); MEAN CORPUSCULAR HEMOGLOBIN 32.6 pg (27.0-33.0); MEAN CORPUSCULAR HGB CONC 33.6 g/dl (32.0-36.5); MEAN CORPUSCULAR VOLUME 97.2 fl (80.0-96.0); RED BLOOD COUNT 2.88 10^6/uL (4.30-6.10); WHITE BLOOD COUNT 13.7 10^3/uL (4.0-10.0)
[2022-08-13 04:52] LABS: PLATELET COUNT, AUTOMATED 48 10^3/uL (150-450)
[2022-08-13 05:17] LABS: ALBUMIN 1.7 G/DL (3.2-5.2); BILIRUBIN,TOTAL 1.7 MG/DL (0.3-1.2); CALCIUM LEVEL 7.4 MG/DL (8.3-10.6); CK-MB VALUE MASS 25.7 NG/ML (<3.6); CREATININE FOR GFR 1.71 MG/DL (0.70-1.30); GLOMERULAR FILTRATION RATE 40.6 (>35); MAGNESIUM LEVEL 1.9 MG/DL (1.8-2.4); MB/CK RELATIVE INDEX 19.92 (< OR =4); POTASSIUM SERUM 4.1 MMOL/L (3.5-5.1); TOTAL PROTEIN 4.3 G/DL (5.7-8.2)
[2022-08-13] MEDS ORDERED: VANCOMYCIN HCL 500 MG in D5W MINI-BAG PLUS 100 ML IV SCH (08:00)
[2022-08-13] MEDS: LACTOBACILLUS ACIDOPHILUS CAP (BACID) PO SCH ×2 (08:18→18:10)
[2022-08-13] MEDS: NS 0.45% 1,000 ML IV SCH ×2 (08:20→18:12)
[2022-08-13] MEDS ORDERED: DIGOXIN INJ 0.5 MG/2 ML AMP IV STA ×2 (08:32→08:51)
[2022-08-13] MEDS ORDERED: DIGOXIN 0.125 MG TAB PO SCH (09:00)
[2022-08-13] MEDS ORDERED: VARIBAR PUDDING 40% w/v 230ML TUBE As Ordered ONE (10:40)
[2022-08-13] MEDS ORDERED: VARIBAR NECTAR 40% w/v 240ML SUSP BTL As Ordered ONE (10:40)
[2022-08-13] MEDS ORDERED: E-Z-PAQUE 96% w/w SUSP 176GM BTL As Ordered ONE (10:55)
[2022-08-14] VITALS (7 sets, daily range): BP systolic 113–140; BP diastolic 53–69
[2022-08-14] MEDS: PIPERACILLIN/TAZOBACTAM SOD 3.375 GM in D5W MINI-BAG PLUS 50 ML IV SCH ×5 (00:26→23:26)
[2022-08-14] MEDS: AMIODARONE 200 MG TAB (PACERONE) PO SCH ×3 (06:09→21:24)
[2022-08-14] MEDS: NS 0.45% 1,000 ML IV SCH (06:21)
[2022-08-14 07:01] LABS: HEMATOCRIT 28.3 % (42.0-52.0); HEMOGLOBIN 9.3 g/dl (13.5-17.5); MEAN CORPUSCULAR HEMOGLOBIN 32.4 pg (27.0-33.0); MEAN CORPUSCULAR HGB CONC 32.9 g/dl (32.0-36.5); MEAN CORPUSCULAR VOLUME 98.6 fl (80.0-96.0); RED BLOOD COUNT 2.87 10^6/uL (4.30-6.10); WHITE BLOOD COUNT 9.8 10^3/uL (4.0-10.0)
[2022-08-14 07:06] LABS: PLATELET COUNT, AUTOMATED 48 10^3/uL (150-450)
[2022-08-14 07:50] LABS: ALBUMIN 1.9 G/DL (3.2-5.2); BILIRUBIN,TOTAL 1.1 MG/DL (0.3-1.2); CALCIUM LEVEL 7.4 MG/DL (8.3-10.6); CK-MB VALUE MASS 35.6 NG/ML (<3.6); CREATININE FOR GFR 1.45 MG/DL (0.70-1.30); GLOMERULAR FILTRATION RATE 49.1 (>35); MAGNESIUM LEVEL 1.5 MG/DL (1.8-2.4); MB/CK RELATIVE INDEX 19.24 (< OR =4); PHOSPHORUS LEVEL 2.3 MG/DL (2.4-5.1); POTASSIUM SERUM 3.7 MMOL/L (3.5-5.1); TOTAL PROTEIN 4.9 G/DL (5.7-8.2)
[2022-08-14] MEDS ORDERED: MAG SULF 1GM/100ML (MAG RUN) 1 GM in IV 1 EA IV ONE (09:00)
[2022-08-14] MEDS: PANTOPRAZOLE 40MG VIAL IV SCH (09:06)
[2022-08-14] MEDS: DIGOXIN 0.125 MG TAB PO SCH (09:06)
[2022-08-14] MEDS: LACTOBACILLUS ACIDOPHILUS CAP (BACID) PO SCH ×2 (09:06→18:17)
[2022-08-14] MEDS ORDERED: POTASSIUM PHOSPHATE INJ 20 MMOL in D5W 250 ML IV ONE (10:00)
[2022-08-14 12:49] LABS: CK-MB VALUE MASS 23.9 NG/ML (<3.6)
[2022-08-14 13:01] LABS: MB/CK RELATIVE INDEX 13.35 (< OR =4)
[2022-08-15 01:23] LABS: CK-MB VALUE MASS 15.9 NG/ML (<3.6); MB/CK RELATIVE INDEX 12.04 (< OR =4)
[2022-08-15 03:55] VITALS: BP 107/61
[2022-08-15 05:05] LABS: HEMATOCRIT 25.9 % (42.0-52.0); HEMOGLOBIN 8.6 g/dl (13.5-17.5); MEAN CORPUSCULAR HEMOGLOBIN 32.5 pg (27.0-33.0); MEAN CORPUSCULAR HGB CONC 33.2 g/dl (32.0-36.5); MEAN CORPUSCULAR VOLUME 97.7 fl (80.0-96.0); RED BLOOD COUNT 2.65 10^6/uL (4.30-6.10); WHITE BLOOD COUNT 5.4 10^3/uL (4.0-10.0)
[2022-08-15 05:09] LABS: PLATELET COUNT, AUTOMATED 48 10^3/uL (150-450)
[2022-08-15 05:21] LABS: CK-MB VALUE MASS 12.8 NG/ML (<3.6)
[2022-08-15 05:23] LABS: MAGNESIUM LEVEL 1.6 MG/DL (1.8-2.4); MB/CK RELATIVE INDEX 8.88 (< OR =4); PHOSPHORUS LEVEL 2.2 MG/DL (2.4-5.1)
[2022-08-15] MEDS: PIPERACILLIN/TAZOBACTAM SOD 3.375 GM in D5W MINI-BAG PLUS 50 ML IV SCH ×3 (05:56→18:20)
[2022-08-15] MEDS: AMIODARONE 200 MG TAB (PACERONE) PO SCH ×3 (05:56→21:45)
[2022-08-15] MEDS ORDERED: MAG SULF 1GM/100ML (MAG RUN) 1 GM in IV 1 EA IV ONE (07:20)
[2022-08-15 08:03] VITALS: BP 135/66
[2022-08-15 08:24] LABS: ALBUMIN 1.7 G/DL (3.2-5.2); BILIRUBIN,TOTAL 1.1 MG/DL (0.3-1.2); CREATININE FOR GFR 1.41 MG/DL (0.70-1.30); GLOMERULAR FILTRATION RATE 50.7 (>35); POTASSIUM SERUM 3.7 MMOL/L (3.5-5.1); TOTAL PROTEIN 4.7 G/DL (5.7-8.2)
[2022-08-15] MEDS: PANTOPRAZOLE 40MG VIAL IV SCH (08:26)
[2022-08-15] MEDS: LACTOBACILLUS ACIDOPHILUS CAP (BACID) PO SCH ×2 (08:26→18:20)
[2022-08-15] MEDS: DIGOXIN 0.125 MG TAB PO SCH (08:26)
[2022-08-15] MEDS: MAGNESIUM OXIDE 400MG TAB (MAG-OX) PO SCH ×2 (08:26→21:45)
[2022-08-15] MEDS ORDERED: SODIUM PHOSPHATE INJ 20 MMOL in D5W 250 ML IV ONE (09:00)
[2022-08-15 09:30] VITALS: BP 111/53
[2022-08-15 14:00] VITALS: BP 125/60
[2022-08-15 19:30] VITALS: BP 119/58
[2022-08-16] MEDS: PIPERACILLIN/TAZOBACTAM SOD 3.375 GM in D5W MINI-BAG PLUS 50 ML IV SCH ×4 (00:03→18:07)
[2022-08-16] MEDS ORDERED: ACETAMINOPHEN TAB 650MG DOSE (2X325MG) PO PRN (02:25)
[2022-08-16] MEDS ORDERED: NORCO, ANEXSIA 5/325MG TABLET (HYDROcodone/ACETAMINOPHEN) PO PRN (02:25)
[2022-08-16] MEDS: LIDOCAINE 5% (LIDODERM) PATCH TD SCH ×2 (03:23→21:00)
[2022-08-16 06:00] VITALS: BP 122/68
[2022-08-16] MEDS: AMIODARONE 200 MG TAB (PACERONE) PO SCH ×3 (06:14→22:04)
[2022-08-16 06:39] LABS: HEMATOCRIT 24.2 % (42.0-52.0); HEMOGLOBIN 8.2 g/dl (13.5-17.5); MEAN CORPUSCULAR HEMOGLOBIN 32.7 pg (27.0-33.0); MEAN CORPUSCULAR HGB CONC 33.9 g/dl (32.0-36.5); MEAN CORPUSCULAR VOLUME 96.4 fl (80.0-96.0); RED BLOOD COUNT 2.51 10^6/uL (4.30-6.10); WHITE BLOOD COUNT 3.8 10^3/uL (4.0-10.0)
[2022-08-16 06:40] LABS: PLATELET COUNT, AUTOMATED 46 10^3/uL (150-450)
[2022-08-16 07:05] LABS: MB/CK RELATIVE INDEX 3.94 (< OR =4)
[2022-08-16 07:06] LABS: ALBUMIN 1.4 G/DL (3.2-5.2); BILIRUBIN,TOTAL 1.9 MG/DL (0.3-1.2); CALCIUM LEVEL 6.6 MG/DL (8.3-10.6); CREATININE FOR GFR 1.45 MG/DL (0.70-1.30); GLOMERULAR FILTRATION RATE 49.1 (>35); MAGNESIUM LEVEL 1.6 MG/DL (1.8-2.4); PHOSPHORUS LEVEL 2.5 MG/DL (2.4-5.1); POTASSIUM SERUM 3.5 MMOL/L (3.5-5.1); TOTAL PROTEIN 4.1 G/DL (5.7-8.2)
[2022-08-16] MEDS ORDERED: MAG SULF 1GM/100ML (MAG RUN) 1 GM in IV 1 EA IV ONE (08:00)
[2022-08-16] MEDS: K-PHOS NEUTRAL 250MG TABLET (SOD.PHOSPHATE/POT.PHOSPHATE) PO SCH ×2 (10:14→21:00)
[2022-08-16] MEDS: DIGOXIN 0.125 MG TAB PO SCH (10:14)
[2022-08-16] MEDS: MAGNESIUM OXIDE 400MG TAB (MAG-OX) PO SCH ×2 (10:14→21:00)
[2022-08-16] MEDS: PANTOPRAZOLE 40MG VIAL IV SCH (10:15)
[2022-08-16] MEDS: LACTOBACILLUS ACIDOPHILUS CAP (BACID) PO SCH ×2 (10:18→18:07)
[2022-08-16 14:00] VITALS: BP 125/57
[2022-08-16 20:35] VITALS: BP 118/68
[2022-08-17] MEDS: AMIODARONE 200 MG TAB (PACERONE) PO SCH ×3 (05:35→20:44)
[2022-08-17 06:00] VITALS: BP 130/69
[2022-08-17 06:33] LABS: HEMATOCRIT 26.3 % (42.0-52.0); HEMOGLOBIN 8.9 g/dl (13.5-17.5); MEAN CORPUSCULAR HEMOGLOBIN 33.2 pg (27.0-33.0); MEAN CORPUSCULAR HGB CONC 33.8 g/dl (32.0-36.5); MEAN CORPUSCULAR VOLUME 98.1 fl (80.0-96.0); RED BLOOD COUNT 2.68 10^6/uL (4.30-6.10); WHITE BLOOD COUNT 3.3 10^3/uL (4.0-10.0)
[2022-08-17 06:41] LABS: PLATELET COUNT, AUTOMATED 49 10^3/uL (150-450)
[2022-08-17] MEDS: MAGNESIUM OXIDE 400MG TAB (MAG-OX) PO SCH ×2 (08:36→20:44)
[2022-08-17] MEDS: K-PHOS NEUTRAL 250MG TABLET (SOD.PHOSPHATE/POT.PHOSPHATE) PO SCH ×2 (08:36→20:44)
[2022-08-17] MEDS: LACTOBACILLUS ACIDOPHILUS CAP (BACID) PO SCH ×2 (08:36→18:00)
[2022-08-17] MEDS: PANTOPRAZOLE 40MG VIAL IV SCH (08:36)
[2022-08-17] MEDS: DIGOXIN 0.125 MG TAB PO SCH (08:38)
[2022-08-17 08:41] LABS: ALBUMIN 1.5 G/DL (3.2-5.2); BILIRUBIN,TOTAL 1.8 MG/DL (0.3-1.2); CALCIUM LEVEL 7.3 MG/DL (8.3-10.6); CK-MB VALUE MASS 1.8 NG/ML (<3.6); CREATININE FOR GFR 1.46 MG/DL (0.70-1.30); GLOMERULAR FILTRATION RATE 48.7 (>35); MAGNESIUM LEVEL 1.7 MG/DL (1.8-2.4); MB/CK RELATIVE INDEX 3.82 (< OR =4); PHOSPHORUS LEVEL 2.5 MG/DL (2.4-5.1); POTASSIUM SERUM 3.7 MMOL/L (3.5-5.1); TOTAL PROTEIN 4.5 G/DL (5.7-8.2)
[2022-08-17 14:00] VITALS: BP 151/60
[2022-08-17] MEDS: LIDOCAINE 5% (LIDODERM) PATCH TD SCH (20:46)
[2022-08-17 20:47] VITALS: BP 144/78
[2022-08-18 05:00] VITALS: BP 146/79
[2022-08-18] MEDS: AMIODARONE 200 MG TAB (PACERONE) PO SCH ×3 (05:01→21:28)
[2022-08-18 06:26] LABS: HEMOGLOBIN 8.6 g/dl (13.5-17.5); MEAN CORPUSCULAR HEMOGLOBIN 32.3 pg (27.0-33.0); MEAN CORPUSCULAR HGB CONC 33.1 g/dl (32.0-36.5); MEAN CORPUSCULAR VOLUME 97.7 fl (80.0-96.0); RED BLOOD COUNT 2.66 10^6/uL (4.30-6.10); WHITE BLOOD COUNT 2.7 10^3/uL (4.0-10.0)
[2022-08-18 06:40] LABS: PLATELET COUNT, AUTOMATED 54 10^3/uL (150-450)
[2022-08-18 07:01] LABS: ALBUMIN 1.5 G/DL (3.2-5.2); BILIRUBIN,TOTAL 1.1 MG/DL (0.3-1.2); CALCIUM LEVEL 7.3 MG/DL (8.3-10.6); CREATININE FOR GFR 1.28 MG/DL (0.70-1.30); GLOMERULAR FILTRATION RATE 56.7 (>35); POTASSIUM SERUM 3.6 MMOL/L (3.5-5.1); TOTAL PROTEIN 4.5 G/DL (5.7-8.2)
[2022-08-18] MEDS: MAGNESIUM OXIDE 400MG TAB (MAG-OX) PO SCH ×2 (09:32→21:28)
[2022-08-18] MEDS: D5W 1,000 ML IV SCH ×2 (09:32→20:03)
[2022-08-18] MEDS: PANTOPRAZOLE 40MG VIAL IV SCH (09:32)
[2022-08-18] MEDS: LACTOBACILLUS ACIDOPHILUS CAP (BACID) PO SCH ×2 (09:33→18:35)
[2022-08-18] MEDS: K-PHOS NEUTRAL 250MG TABLET (SOD.PHOSPHATE/POT.PHOSPHATE) PO SCH ×2 (09:33→21:28)
[2022-08-18] MEDS: DIGOXIN 0.125 MG TAB PO SCH (09:34)
[2022-08-18 14:00] VITALS: BP 131/63
[2022-08-18 20:00] VITALS: BP 129/63
[2022-08-18] MEDS: LIDOCAINE 5% (LIDODERM) PATCH TD SCH (21:28)
[2022-08-19] MEDS: D5W 1,000 ML IV SCH (05:29)
[2022-08-19] MEDS: AMIODARONE 200 MG TAB (PACERONE) PO SCH ×3 (05:29→20:30)
[2022-08-19 06:00] VITALS: BP 127/63
[2022-08-19 06:31] LABS: HEMATOCRIT 24.4 % (42.0-52.0); HEMOGLOBIN 8.2 g/dl (13.5-17.5); MEAN CORPUSCULAR HEMOGLOBIN 32.7 pg (27.0-33.0); MEAN CORPUSCULAR HGB CONC 33.6 g/dl (32.0-36.5); MEAN CORPUSCULAR VOLUME 97.2 fl (80.0-96.0); PLATELET COUNT, AUTOMATED 57 10^3/uL (150-450); RED BLOOD COUNT 2.51 10^6/uL (4.30-6.10); WHITE BLOOD COUNT 2.8 10^3/uL (4.0-10.0)
[2022-08-19 07:01] LABS: ALBUMIN 1.4 G/DL (3.2-5.2); ALKALINE PHOSPHATASE 70 U/L (46-116); ALT/SGPT 48 U/L (7.0-40); AST/SGOT 47 U/L (<34); BILIRUBIN,TOTAL 1.1 MG/DL (0.3-1.2); BLOOD UREA NITROGEN 23 MG/DL (9-23); CARBON DIOXIDE LEVEL 25 MMOL/L (20-31); CHLORIDE LEVEL 110 MMOL/L (98-107); CREATININE FOR GFR 1.18 MG/DL (0.70-1.30); GLOMERULAR FILTRATION RATE > 60.0 (>35); GLUCOSE, FASTING 124 MG/DL (74-106); POTASSIUM SERUM 3.4 MMOL/L (3.5-5.1); SODIUM LEVEL 142 MMOL/L (136-145); TOTAL PROTEIN 4.3 G/DL (5.7-8.2)
[2022-08-19] MEDS: METOPROLOL SUCC *XL* 12.5MG PER 1/2 TAB (TopROL *XL*) PO SCH (08:50)
[2022-08-19] MEDS: lisinopriL 40MG TAB PO SCH (08:50)
[2022-08-19] MEDS: LACTOBACILLUS ACIDOPHILUS CAP (BACID) PO SCH ×2 (08:58→18:22)
[2022-08-19] MEDS: K-PHOS NEUTRAL 250MG TABLET (SOD.PHOSPHATE/POT.PHOSPHATE) PO SCH ×2 (08:58→20:30)
[2022-08-19] MEDS: PANTOPRAZOLE 40MG VIAL IV SCH (08:58)
[2022-08-19] MEDS: MAGNESIUM OXIDE 400MG TAB (MAG-OX) PO SCH ×2 (08:58→20:29)
[2022-08-19] MEDS: DAPAGLIFLOZIN PROPANEDIOL 10MG TABLET (FARXIGA) PO SCH (08:58)
[2022-08-19] MEDS: POTASSIUM CHLORIDE 10MEQ SR TABLET PO SCH ×2 (08:58→20:29)
[2022-08-19] MEDS: DIGOXIN 0.125 MG TAB PO SCH (08:59)
[2022-08-19 18:30] VITALS: BP 117/53
[2022-08-19] MEDS: LIDOCAINE 5% (LIDODERM) PATCH TD SCH (20:29)
[2022-08-20] MEDS: AMIODARONE 200 MG TAB (PACERONE) PO SCH ×3 (05:37→21:56)
[2022-08-20 05:58] VITALS: BP 136/65
[2022-08-20 06:05] LABS: HEMATOCRIT 24.9 % (42.0-52.0); HEMOGLOBIN 8.3 g/dl (13.5-17.5); MEAN CORPUSCULAR HEMOGLOBIN 32.2 pg (27.0-33.0); MEAN CORPUSCULAR HGB CONC 33.3 g/dl (32.0-36.5); MEAN CORPUSCULAR VOLUME 96.5 fl (80.0-96.0); RED BLOOD COUNT 2.58 10^6/uL (4.30-6.10); WHITE BLOOD COUNT 2.5 10^3/uL (4.0-10.0)
[2022-08-20 06:17] LABS: PLATELET COUNT, AUTOMATED 60 10^3/uL (150-450)
[2022-08-20 06:33] LABS: ALBUMIN 1.6 G/DL (3.2-5.2); BILIRUBIN,TOTAL 0.8 MG/DL (0.3-1.2); CALCIUM LEVEL 7.3 MG/DL (8.3-10.6); CREATININE FOR GFR 1.34 MG/DL (0.70-1.30); GLOMERULAR FILTRATION RATE 53.8 (>35); POTASSIUM SERUM 4.7 MMOL/L (3.5-5.1); TOTAL PROTEIN 4.3 G/DL (5.7-8.2)
[2022-08-20] MEDS ORDERED: LR 500 ML IV SCH (07:45)
[2022-08-20] MEDS: DAPAGLIFLOZIN PROPANEDIOL 10MG TABLET (FARXIGA) PO SCH (09:03)
[2022-08-20] MEDS: DIGOXIN 0.125 MG TAB PO SCH (09:03)
[2022-08-20] MEDS: PANTOPRAZOLE 40MG TAB (PROTONIX) PO SCH (09:03)
[2022-08-20] MEDS: LACTOBACILLUS ACIDOPHILUS CAP (BACID) PO SCH ×2 (09:04→18:17)
[2022-08-20] MEDS: MAGNESIUM OXIDE 400MG TAB (MAG-OX) PO SCH ×2 (09:04→21:56)
[2022-08-20] MEDS: K-PHOS NEUTRAL 250MG TABLET (SOD.PHOSPHATE/POT.PHOSPHATE) PO SCH ×2 (09:04→21:56)
[2022-08-20] MEDS: METOPROLOL SUCC *XL* 12.5MG PER 1/2 TAB (TopROL *XL*) PO SCH (09:05)
[2022-08-20] MEDS: lisinopriL 40MG TAB PO SCH (09:05)
[2022-08-20] MEDS ORDERED: PILL CUTTER 1 EACH XX ONE (09:07)
[2022-08-20] MEDS: LIDOCAINE 5% (LIDODERM) PATCH TD SCH (21:00)
[2022-08-21 05:31] LABS: HEMOGLOBIN 7.8 g/dl (13.5-17.5); MEAN CORPUSCULAR HEMOGLOBIN 31.7 pg (27.0-33.0); MEAN CORPUSCULAR HGB CONC 32.5 g/dl (32.0-36.5); MEAN CORPUSCULAR VOLUME 97.6 fl (80.0-96.0); PLATELET COUNT, AUTOMATED 60 10^3/uL (150-450); RED BLOOD COUNT 2.46 10^6/uL (4.30-6.10); WHITE BLOOD COUNT 2.3 10^3/uL (4.0-10.0)
[2022-08-21] MEDS: AMIODARONE 200 MG TAB (PACERONE) PO SCH ×3 (05:59→20:09)
[2022-08-21 06:00] VITALS: BP 114/60
[2022-08-21 06:03] LABS: ALBUMIN 1.5 G/DL (3.2-5.2); BILIRUBIN,TOTAL 0.8 MG/DL (0.3-1.2); CALCIUM LEVEL 7.4 MG/DL (8.3-10.6); CREATININE FOR GFR 1.41 MG/DL (0.70-1.30); GLOMERULAR FILTRATION RATE 50.7 (>35); POTASSIUM SERUM 4.9 MMOL/L (3.5-5.1); TOTAL PROTEIN 4.6 G/DL (5.7-8.2)
[2022-08-21] MEDS: LACTOBACILLUS ACIDOPHILUS CAP (BACID) PO SCH ×2 (09:27→18:37)
[2022-08-21] MEDS: DAPAGLIFLOZIN PROPANEDIOL 10MG TABLET (FARXIGA) PO SCH (09:27)
[2022-08-21] MEDS: DIGOXIN 0.125 MG TAB PO SCH (09:27)
[2022-08-21] MEDS: K-PHOS NEUTRAL 250MG TABLET (SOD.PHOSPHATE/POT.PHOSPHATE) PO SCH ×2 (09:27→20:09)
[2022-08-21] MEDS: PANTOPRAZOLE 40MG TAB (PROTONIX) PO SCH (09:28)
[2022-08-21] MEDS: METOPROLOL SUCC *XL* 12.5MG PER 1/2 TAB (TopROL *XL*) PO SCH (09:28)
[2022-08-21] MEDS: lisinopriL 40MG TAB PO SCH (09:28)
[2022-08-21] MEDS: MAGNESIUM OXIDE 400MG TAB (MAG-OX) PO SCH ×2 (09:28→20:09)
[2022-08-21] MEDS ORDERED: LR 500 ML IV ONE (16:30)
[2022-08-21] MEDS: LR 500 ML IV SCH (18:31)
[2022-08-21] MEDS: LIDOCAINE 5% (LIDODERM) PATCH TD SCH (20:09)
[2022-08-22] MEDS: LR 500 ML IV SCH (03:45)
[2022-08-22 05:22] VITALS: BP 144/67
[2022-08-22] MEDS: AMIODARONE 200 MG TAB (PACERONE) PO SCH ×3 (05:22→21:08)
[2022-08-22 05:50] LABS: HEMATOCRIT 25.3 % (42.0-52.0); HEMOGLOBIN 8.1 g/dl (13.5-17.5); MEAN CORPUSCULAR VOLUME 96.9 fl (80.0-96.0); RED BLOOD COUNT 2.61 10^6/uL (4.30-6.10); WHITE BLOOD COUNT 2.5 10^3/uL (4.0-10.0)
[2022-08-22 05:58] LABS: PLATELET COUNT, AUTOMATED 67 10^3/uL (150-450)
[2022-08-22 06:23] LABS: ALBUMIN 1.5 G/DL (3.2-5.2); BILIRUBIN,TOTAL 0.8 MG/DL (0.3-1.2); CALCIUM LEVEL 7.2 MG/DL (8.3-10.6); CREATININE FOR GFR 1.31 MG/DL (0.70-1.30); GLOMERULAR FILTRATION RATE 55.2 (>35); POTASSIUM SERUM 4.2 MMOL/L (3.5-5.1); TOTAL PROTEIN 4.3 G/DL (5.7-8.2)
[2022-08-22] MEDS: LACTOBACILLUS ACIDOPHILUS CAP (BACID) PO SCH ×2 (09:10→17:49)
[2022-08-22] MEDS: DIGOXIN 0.125 MG TAB PO SCH (09:10)
[2022-08-22] MEDS: MAGNESIUM OXIDE 400MG TAB (MAG-OX) PO SCH ×2 (09:10→20:04)
[2022-08-22] MEDS: METOPROLOL SUCC *XL* 12.5MG PER 1/2 TAB (TopROL *XL*) PO SCH (09:11)
[2022-08-22] MEDS: DAPAGLIFLOZIN PROPANEDIOL 10MG TABLET (FARXIGA) PO SCH (09:11)
[2022-08-22] MEDS: PANTOPRAZOLE 40MG TAB (PROTONIX) PO SCH (09:11)
[2022-08-22] MEDS: K-PHOS NEUTRAL 250MG TABLET (SOD.PHOSPHATE/POT.PHOSPHATE) PO SCH ×2 (09:11→20:03)
[2022-08-22] MEDS: LIDOCAINE 5% (LIDODERM) PATCH TD SCH (20:04)
[2022-08-23] MEDS: AMIODARONE 200 MG TAB (PACERONE) PO SCH (05:37)
[2022-08-23 06:00] VITALS: BP 146/71
[2022-08-23 06:18] LABS: HEMATOCRIT 26.3 % (42.0-52.0); HEMOGLOBIN 8.5 g/dl (13.5-17.5); MEAN CORPUSCULAR HEMOGLOBIN 31.4 pg (27.0-33.0); MEAN CORPUSCULAR HGB CONC 32.3 g/dl (32.0-36.5); RED BLOOD COUNT 2.71 10^6/uL (4.30-6.10); WHITE BLOOD COUNT 2.7 10^3/uL (4.0-10.0)
[2022-08-23 06:23] LABS: PLATELET COUNT, AUTOMATED 74 10^3/uL (150-450)
[2022-08-23 06:37] LABS: ALBUMIN 1.7 G/DL (3.2-5.2); BILIRUBIN,TOTAL 0.7 MG/DL (0.3-1.2); CALCIUM LEVEL 7.6 MG/DL (8.3-10.6); CREATININE FOR GFR 1.44 MG/DL (0.70-1.30); GLOMERULAR FILTRATION RATE 49.5 (>35); POTASSIUM SERUM 4.4 MMOL/L (3.5-5.1); TOTAL PROTEIN 7.3 G/DL (5.7-8.2)
[2022-08-23 09:00] VITALS: BP 114/60
[2022-08-23] MEDS: K-PHOS NEUTRAL 250MG TABLET (SOD.PHOSPHATE/POT.PHOSPHATE) PO SCH (09:00)
[2022-08-23] MEDS: METOPROLOL SUCC *XL* 12.5MG PER 1/2 TAB (TopROL *XL*) PO SCH (09:00)
[2022-08-23] MEDS: PANTOPRAZOLE 40MG TAB (PROTONIX) PO SCH (09:00)
[2022-08-23] MEDS: MAGNESIUM OXIDE 400MG TAB (MAG-OX) PO SCH (09:00)
[2022-08-23] MEDS: LACTOBACILLUS ACIDOPHILUS CAP (BACID) PO SCH (09:00)
[2022-08-23] MEDS: DIGOXIN 0.125 MG TAB PO SCH (09:01)
[2022-08-23] MEDS ORDERED: MAGN400T2 PO (11:44)
[2022-08-23] MEDS ORDERED: METO1TAB32 PO (11:44)
[2022-08-23] MEDS ORDERED: DIGO0.123 PO (11:44)
[2022-08-23] MEDS ORDERED: ACET1TAB55 PO (11:44)
[2022-08-23] MEDS ORDERED: RISATAB3 PO (11:44)
[2022-08-23] MEDS ORDERED: AMIO200T49 PO (11:44)
[2022-08-23] MEDS ORDERED: PANT40TA29 PO (11:44)
[2022-08-23] MEDS ORDERED: LIDO5TD TD (11:44)
== END 2022-08-23 13:43 | DRG 871 ==
LOC: EDBD 16:46 → M ED 16:46 → M ED INP 16:47 → ENRESERV 08-11 04:05 → M MS5PR 08-11 04:38 → OBSVTOIN 08-11 16:00 → M PCU 08-11 17:05 → M MSPAV 08-15 09:26
PROVIDERS: ADMIT Internal Medicine; ATTEND Student in an Organized Health Care Education/Training Program
PROC: B246ZZZ Ultrasonography of Right and Left Heart (ICD-10-PCS; principal; 2022-08-13)
DX: A41.9 Sepsis, unspecified organism (principal); J18.9 Pneumonia, unspecified organism; J96.01 Acute respiratory failure with hypoxia; G93.41 Metabolic encephalopathy; I21.A1 Myocardial infarction type 2; S42.212A Unspecified displaced fracture of surgical neck of left humerus, initial encounter for closed fracture; N17.9 Acute kidney failure, unspecified; E87.0 Hyperosmolality and hypernatremia; D61.818 Other pancytopenia; E87.20 Acidosis, unspecified; K52.1 Toxic gastroenteritis and colitis; I50.22 Chronic systolic (congestive) heart failure; I13.0 Hypertensive heart and chronic kidney disease with heart failure and stage 1 through stage 4 chronic kidney disease, or unspecified chronic kidney disease; Z66 Do not resuscitate; R94.31 Abnormal electrocardiogram [ECG] [EKG]; E55.9 Vitamin D deficiency, unspecified; E78.5 Hyperlipidemia, unspecified; E86.0 Dehydration; W00.0XXA Fall on same level due to ice and snow, initial encounter; Y92.014 Private driveway to single-family (private) house as the place of occurrence of the external cause; Y93.9 Activity, unspecified; R26.81 Unsteadiness on feet; R62.7 Adult failure to thrive; R13.10 Dysphagia, unspecified; K76.0 Fatty (change of) liver, not elsewhere classified; N18.9 Chronic kidney disease, unspecified; R65.20 Severe sepsis without septic shock; I48.91 Unspecified atrial fibrillation; D69.59 Other secondary thrombocytopenia; Y99.8 Other external cause status; D46.9 Myelodysplastic syndrome, unspecified; I25.10 Atherosclerotic heart disease of native coronary artery without angina pectoris; Z85.820 Personal history of malignant melanoma of skin; Z90.49 Acquired absence of other specified parts of digestive tract; Z98.41 Cataract extraction status, right eye; Z87.891 Personal history of nicotine dependence; Z79.82 Long term (current) use of aspirin; Z79.899 Other long term (current) drug therapy

== ENCOUNTER → 2022-08-25 | Outpatient (REF) ==
[~2022-08-25] MED LIST changes: +ACET1TAB55 PO; +AMIO200T49 PO; +ASPI81TA26 PO; +DIGO0.123 PO; +LIDO5TD TD; +MAGN400T2 PO; +METO1TAB32 PO; +PANT40TA29 PO; +RISATAB3 PO
[2022-08-25 08:36] LABS: HEMATOCRIT 23.4 % (42.0-52.0); HEMOGLOBIN 7.5 g/dl (13.5-17.5); MEAN CORPUSCULAR HEMOGLOBIN 31.1 pg (27.0-33.0); MEAN CORPUSCULAR HGB CONC 32.1 g/dl (32.0-36.5); MEAN CORPUSCULAR VOLUME 97.1 fl (80.0-96.0); RED BLOOD COUNT 2.41 10^6/uL (4.30-6.10); WHITE BLOOD COUNT 2.2 10^3/uL (4.0-10.0)
[2022-08-25 08:51] LABS: PLATELET COUNT, AUTOMATED 73 10^3/uL (150-450)
[2022-08-25 09:10] LABS: ALBUMIN 1.8 G/DL (3.2-5.2); BILIRUBIN,TOTAL 0.7 MG/DL (0.3-1.2); CALCIUM LEVEL 7.7 MG/DL (8.3-10.6); CREATININE FOR GFR 1.54 MG/DL (0.70-1.30); GLOMERULAR FILTRATION RATE 45.8 (>35); MAGNESIUM LEVEL 1.6 MG/DL (1.8-2.4); POTASSIUM SERUM 4.4 MMOL/L (3.5-5.1); TOTAL PROTEIN 4.8 G/DL (5.7-8.2)
[2022-08-25 16:37] LABS: PERCENT SATURATION 11.4 % (19.7-50.0)
[2022-08-25 17:00] LABS: BILIRUBIN,DIRECT 0.3 MG/DL (<0.4); BILIRUBIN,TOTAL 0.8 MG/DL (0.3-1.2); FREE T3 2.6 PG/ML (2.3-4.2); FREE T4 1.17 NG/DL (0.89-1.76); THYROID STIMULATING HORMONE 2.523 uIU/ML (0.55-4.78)
[2022-08-25 19:02] LABS: FOLATE 13.75 NG/ML (>5.4); TOTAL PROTEIN 5.5 G/DL (5.7-8.2)
[2022-08-27 07:07] LABS: HAPTOGLOBIN 184 mg/dL (38-329); TRANSFERRIN 169 mg/dL (149-313)
== END ==
PROVIDERS: ATTEND Physician Assistant
DX: N17.9 Acute kidney failure, unspecified (principal)

== ENCOUNTER 2022-08-26 09:00 | Outpatient (CLI) | payer MEDICARE ==
[~2022-08-26] VITALS: Ht 165.1 cm; Wt 70.3 kg
[~2022-08-26 09:00] MED LIST changes: +ACETAMINOPHEN TAB 650MG DOSE (2X325MG) PO SCH; +diphenhydrAMINE 25MG CAP PO SCH
[2022-08-26 10:54] VITALS: BP 131/60
[2022-08-26 11:10] VITALS: BP 123/60
[2022-08-26 12:10] VITALS: BP 139/73
[2022-08-26 13:15] VITALS: BP 125/61
[2022-08-26 14:20] VITALS: BP 147/68
[2022-08-26 14:40] VITALS: BP 147/68
== END 2022-08-26 14:40 ==
LOC: M INFU 09:00
PROVIDERS: ATTEND Family Medicine
DX: D64.9 Anemia, unspecified (principal)
CPT/HCPCS: 36415; 36430; 36592; 86850; 86900; 86901; 86920; P9016

== ENCOUNTER → 2022-08-27 | Outpatient (REF) ==
[~2022-08-27] MED LIST changes: -ACETAMINOPHEN TAB 650MG DOSE (2X325MG) PO SCH; -diphenhydrAMINE 25MG CAP PO SCH
[2022-08-27 07:12] LABS: HEMATOCRIT 29.4 % (42.0-52.0); HEMOGLOBIN 9.7 g/dl (13.5-17.5); MEAN CORPUSCULAR HEMOGLOBIN 31.1 pg (27.0-33.0); MEAN CORPUSCULAR VOLUME 94.2 fl (80.0-96.0); RED BLOOD COUNT 3.12 10^6/uL (4.30-6.10)
[2022-08-27 07:15] LABS: PLATELET COUNT, AUTOMATED 75 10^3/uL (150-450)
== END ==
PROVIDERS: ATTEND Physician Assistant
DX: D64.9 Anemia, unspecified (principal)

== ENCOUNTER → 2022-09-01 | Outpatient (REF) ==
[2022-09-01 12:46] LABS: HEMATOCRIT 30.4 % (42.0-52.0); HEMOGLOBIN 9.7 g/dl (13.5-17.5); MEAN CORPUSCULAR HGB CONC 31.9 g/dl (32.0-36.5); MEAN CORPUSCULAR VOLUME 97.1 fl (80.0-96.0); RED BLOOD COUNT 3.13 10^6/uL (4.30-6.10); WHITE BLOOD COUNT 2.8 10^3/uL (4.0-10.0)
[2022-09-01 12:51] LABS: PLATELET COUNT, AUTOMATED 68 10^3/uL (150-450)
[2022-09-01 13:29] LABS: ALBUMIN 2.2 G/DL (3.2-5.2); BILIRUBIN,TOTAL 0.6 MG/DL (0.3-1.2); CALCIUM LEVEL 8.2 MG/DL (8.3-10.6); CREATININE FOR GFR 1.32 MG/DL (0.70-1.30); GLOMERULAR FILTRATION RATE 54.7 (>35); MAGNESIUM LEVEL 1.5 MG/DL (1.8-2.4); TOTAL PROTEIN 5.5 G/DL (5.7-8.2)
== END ==
PROVIDERS: ATTEND Physician Assistant
DX: N17.9 Acute kidney failure, unspecified (principal)

== ENCOUNTER → 2022-09-01 | Outpatient (REF) | PROVIDERS: ATTEND Family Medicine | DX: R05.9 Cough, unspecified (principal); I70.0 Atherosclerosis of aorta ==

== ENCOUNTER → 2022-09-03 | Outpatient (REF) ==
[2022-09-03 09:59] LABS: HEMATOCRIT 32.5 % (42.0-52.0); HEMOGLOBIN 10.4 g/dl (13.5-17.5); MEAN CORPUSCULAR HEMOGLOBIN 30.8 pg (27.0-33.0); MEAN CORPUSCULAR VOLUME 96.2 fl (80.0-96.0); RED BLOOD COUNT 3.38 10^6/uL (4.30-6.10); WHITE BLOOD COUNT 2.9 10^3/uL (4.0-10.0)
[2022-09-03 10:00] LABS: PLATELET COUNT, AUTOMATED 77 10^3/uL (150-450)
== END ==
PROVIDERS: ATTEND Physician Assistant
DX: D64.9 Anemia, unspecified (principal)

== ENCOUNTER → 2022-09-07 | Outpatient (REF) ==
[~2022-09-07] MED LIST changes: +BISA10SU4 PR; +FERR325T3 PO; +GLUC1KIT IM; +MILKSUS3 PO; +OMEP40CA4 PO
== END ==
PROVIDERS: ATTEND Physician Assistant
DX: R05.9 Cough, unspecified (principal)

== ENCOUNTER → 2022-09-07 | Outpatient (REF) | payer MEDICARE | PROVIDERS: ATTEND Family Medicine | DX: R05.9 Cough, unspecified (principal); I70.0 Atherosclerosis of aorta; S42.409D Unspecified fracture of lower end of unspecified humerus, subsequent encounter for fracture with routine healing ==

== ENCOUNTER 2022-09-08 11:47 | Emergency (ER) | payer MEDICARE ==
[~2022-09-08] VITALS: Ht 165.1 cm; Wt 68.2 kg
[2022-09-08] MEDS ORDERED: IPRATROPIUM 0.5MG/ALBUTEROL 2.5MG INH SOL UD 3ML (DUONEB) NEB ONE (12:50)
[2022-09-08 12:53] LABS: BASO % 0.2 % (0.0-1.0); HEMATOCRIT 34.8 % (42.0-52.0); HEMOGLOBIN 10.9 g/dl (13.5-17.5); LYMPH # 0.4 10^3/uL (1.5-5.0); LYMPH % 8.5 % (24.0-44.0); MEAN CORPUSCULAR HEMOGLOBIN 29.7 pg (27.0-33.0); MEAN CORPUSCULAR HGB CONC 31.3 g/dl (32.0-36.5); MEAN CORPUSCULAR VOLUME 94.8 fl (80.0-96.0); MONO # 0.4 10^3/uL (0.0-0.8); MONO % 9.8 % (2.0-8.0); NEUTROPHILS # 3.6 10^3/uL (1.5-8.5); NEUTROPHILS % 80.4 % (36.0-66.0); PLATELET COUNT, AUTOMATED 121 10^3/uL (150-450); RED BLOOD COUNT 3.67 10^6/uL (4.30-6.10); WHITE BLOOD COUNT 4.5 10^3/uL (4.0-10.0)
[2022-09-08 12:53] LABS: VENOUS BASE EXCESS -0.1 (-2.0-2.0); VENOUS HCO3 25.2 MEQ/L (23.0-27.0); VENOUS O2 SATURATION 87.8 % (60.0-80.0); VENOUS PARTIAL PRESSURE CO2 43.6 mmHg (38.0-50.0); VENOUS PARTIAL PRESSURE O2 55.2 mmHg (30.0-50.0); VENOUS PH 7.379 UNITS (7.330-7.430); VENOUS STANDARD HCO3 24.2 MEQ/L; VENOUS TOTAL CO2 26.5 MEQ/L (24.0-28.0)
[2022-09-08 13:21] LABS: ALBUMIN 2.7 G/DL (3.2-5.2); ALKALINE PHOSPHATASE 113 U/L (46-116); ALT/SGPT 15 U/L (7.0-40); AST/SGOT 21 U/L (<34); BILIRUBIN,DIRECT 0.3 MG/DL (<0.4); BILIRUBIN,TOTAL 0.9 MG/DL (0.3-1.2); BLOOD UREA NITROGEN 27 MG/DL (9-23); CALCIUM LEVEL 8.9 MG/DL (8.3-10.6); CARBON DIOXIDE LEVEL 27 MMOL/L (20-31); CHLORIDE LEVEL 109 MMOL/L (98-107); CK-MB VALUE MASS 3.4 NG/ML (<3.6); CREATININE FOR GFR 1.09 MG/DL (0.70-1.30); GLOMERULAR FILTRATION RATE > 60.0 (>35); GLUCOSE, FASTING 116 MG/DL (74-106); SODIUM LEVEL 143 MMOL/L (136-145); THYROID STIMULATING HORMONE 1.672 uIU/ML (0.55-4.78); THYROXINE (T4) 10.1 UG/DL (4.5-10.9)
[2022-09-08 13:23] LABS: CPK CREATINE PHOSPHOKINASE 51 U/L (46-171); MB/CK RELATIVE INDEX 6.66 (< OR =4)
[2022-09-08 14:38] LABS: CK-MB VALUE MASS 2.9 NG/ML (<3.6)
[2022-09-08 14:40] LABS: MB/CK RELATIVE INDEX 6.17 (< OR =4)
[2022-09-08 15:29] LABS: CK-MB VALUE MASS 2.9 NG/ML (<3.6)
[2022-09-08 15:32] LABS: MB/CK RELATIVE INDEX 8.05 (< OR =4)
[2022-09-08 15:46] VITALS: BP 161/82
== END 2022-09-08 16:39 | disposition home or self-care (01) ==
LOC: M ED 11:47
DX: R06.02 Shortness of breath (principal); I25.10 Atherosclerotic heart disease of native coronary artery without angina pectoris; I48.91 Unspecified atrial fibrillation; I10 Essential (primary) hypertension; D64.9 Anemia, unspecified; E78.5 Hyperlipidemia, unspecified; D46.9 Myelodysplastic syndrome, unspecified; E55.9 Vitamin D deficiency, unspecified; D69.6 Thrombocytopenia, unspecified; Z87.891 Personal history of nicotine dependence; Z79.899 Other long term (current) drug therapy

== ENCOUNTER → 2022-09-08 | Outpatient (REF) ==
[2022-09-08 10:25] LABS: HEMATOCRIT 34.4 % (42.0-52.0); HEMOGLOBIN 10.7 g/dl (13.5-17.5); MEAN CORPUSCULAR HEMOGLOBIN 30.1 pg (27.0-33.0); MEAN CORPUSCULAR HGB CONC 31.1 g/dl (32.0-36.5); MEAN CORPUSCULAR VOLUME 96.6 fl (80.0-96.0); PLATELET COUNT, AUTOMATED 123 10^3/uL (150-450); RED BLOOD COUNT 3.56 10^6/uL (4.30-6.10); WHITE BLOOD COUNT 5.4 10^3/uL (4.0-10.0)
[2022-09-08 11:04] LABS: ALBUMIN 2.7 G/DL (3.2-5.2); ALKALINE PHOSPHATASE 107 U/L (46-116); ALT/SGPT 15 U/L (7.0-40); AST/SGOT 17 U/L (<34); BILIRUBIN,TOTAL 0.7 MG/DL (0.3-1.2); BLOOD UREA NITROGEN 26 MG/DL (9-23); CALCIUM LEVEL 8.8 MG/DL (8.3-10.6); CARBON DIOXIDE LEVEL 26 MMOL/L (20-31); CHLORIDE LEVEL 109 MMOL/L (98-107); CREATININE FOR GFR 1.08 MG/DL (0.70-1.30); DIGOXIN LEVEL 2.1 NG/ML (0.8-2.0); GLOMERULAR FILTRATION RATE > 60.0 (>35); GLUCOSE, FASTING 145 MG/DL (74-106); MAGNESIUM LEVEL 1.7 MG/DL (1.8-2.4); POTASSIUM SERUM 4.5 MMOL/L (3.5-5.1); SODIUM LEVEL 144 MMOL/L (136-145); TOTAL PROTEIN 6.8 G/DL (5.7-8.2)
== END ==
PROVIDERS: ATTEND Physician Assistant
DX: N17.9 Acute kidney failure, unspecified (principal)

== ENCOUNTER → 2022-09-09 | Outpatient (REF) ==
[2022-09-09 16:29] LABS: CALCIUM LEVEL 8.9 MG/DL (8.3-10.6); CREATININE FOR GFR 1.41 MG/DL (0.70-1.30); DIGOXIN LEVEL 2.2 NG/ML (0.8-2.0); GLOMERULAR FILTRATION RATE 50.7 (>35); POTASSIUM SERUM 5.2 MMOL/L (3.5-5.1)
== END ==
PROVIDERS: ATTEND Physician Assistant
DX: I48.91 Unspecified atrial fibrillation (principal)

== ENCOUNTER → 2022-09-13 | Outpatient (CLI) | payer MEDICARE | LOC: M SOG 13:13 | PROVIDERS: ATTEND Orthopaedic Surgery Adult Reconstructive Orthopaedic Surgery | DX: S42.202A Unspecified fracture of upper end of left humerus, initial encounter for closed fracture (principal); W18.30XA Fall on same level, unspecified, initial encounter; Y92.009 Unspecified place in unspecified non-institutional (private) residence as the place of occurrence of the external cause ==

== ENCOUNTER → 2022-09-13 | Outpatient (REF) ==
[2022-09-13 12:24] LABS: CALCIUM LEVEL 8.6 MG/DL (8.3-10.6); CREATININE FOR GFR 1.34 MG/DL (0.70-1.30); GLOMERULAR FILTRATION RATE 53.8 (>35)
== END ==
PROVIDERS: ATTEND Physician Assistant
DX: N18.9 Chronic kidney disease, unspecified (principal)

== ENCOUNTER → 2022-09-15 | Outpatient (REF) ==
[2022-09-15 12:24] LABS: CALCIUM LEVEL 8.2 MG/DL (8.3-10.6); CREATININE FOR GFR 1.41 MG/DL (0.70-1.30); GLOMERULAR FILTRATION RATE 50.7 (>35)
== END ==
PROVIDERS: ATTEND Physician Assistant
DX: I50.9 Heart failure, unspecified (principal)

== ENCOUNTER → 2022-09-22 | Outpatient (REF) ==
[2022-09-22 11:42] LABS: BLOOD UREA NITROGEN 29 MG/DL (9-23); CALCIUM LEVEL 8.1 MG/DL (8.3-10.6); CARBON DIOXIDE LEVEL 24 MMOL/L (20-31); CHLORIDE LEVEL 111 MMOL/L (98-107); CREATININE FOR GFR 1.14 MG/DL (0.70-1.30); DIGOXIN LEVEL 1.6 NG/ML (0.8-2.0); GLOMERULAR FILTRATION RATE > 60.0 (>35); GLUCOSE, FASTING 123 MG/DL (74-106); POTASSIUM SERUM 4.1 MMOL/L (3.5-5.1); SODIUM LEVEL 141 MMOL/L (136-145)
== END ==
PROVIDERS: ATTEND Physician Assistant
DX: N18.9 Chronic kidney disease, unspecified (principal)

== ENCOUNTER → 2022-09-27 | Outpatient (REF) ==
[2022-09-27 11:33] LABS: PERCENT SATURATION 21.2 % (19.7-50.0)
[2022-09-27 11:35] LABS: THYROID STIMULATING HORMONE 2.213 uIU/ML (0.55-4.78); THYROXINE (T4) 8.3 UG/DL (4.5-10.9)
== END ==
PROVIDERS: ATTEND Family Medicine
DX: D64.9 Anemia, unspecified (principal)

== ENCOUNTER → 2022-09-29 | Outpatient (REF) ==
[2022-09-29 10:51] LABS: CALCIUM LEVEL 8.6 MG/DL (8.3-10.6); CREATININE FOR GFR 1.22 MG/DL (0.70-1.30); DIGOXIN LEVEL 1.6 NG/ML (0.8-2.0); POTASSIUM SERUM 4.6 MMOL/L (3.5-5.1)
[2022-09-29 15:55] LABS: HEMATOCRIT 28.9 % (42.0-52.0); HEMOGLOBIN 8.7 g/dl (13.5-17.5); MEAN CORPUSCULAR HEMOGLOBIN 29.9 pg (27.0-33.0); MEAN CORPUSCULAR HGB CONC 30.1 g/dl (32.0-36.5); MEAN CORPUSCULAR VOLUME 99.3 fl (80.0-96.0); PLATELET COUNT, AUTOMATED 106 10^3/uL (150-450); RED BLOOD COUNT 2.91 10^6/uL (4.30-6.10); WHITE BLOOD COUNT 2.9 10^3/uL (4.0-10.0)
== END ==
PROVIDERS: ATTEND Physician Assistant
DX: N18.9 Chronic kidney disease, unspecified (principal)

== ENCOUNTER → 2022-10-06 | Outpatient (REF) | PROVIDERS: ATTEND Physician Assistant | DX: N18.9 Chronic kidney disease, unspecified (principal); Z53.8 Procedure and treatment not carried out for other reasons ==

== ENCOUNTER → 2022-11-08 | Outpatient (CLI) | payer MEDICARE | LOC: M SOG 07:52 | PROVIDERS: ATTEND Orthopaedic Surgery | DX: S42.202D Unspecified fracture of upper end of left humerus, subsequent encounter for fracture with routine healing (principal); W18.30XD Fall on same level, unspecified, subsequent encounter ==